=== PATIENT | female | born 1980 | race Caucasian/White ===

== ENCOUNTER 2017-04-25 16:26 | Emergency (ER) | payer SELFPAY ==
[~2017-04-25] VITALS: Ht 162.6 cm; Wt 43.5 kg
[~2017-04-25 16:26] MED LIST: ACET-789 PO
[2017-04-25 19:43] LABS: BASOPHILS # (AUTO) 0.1 10^3/uL (0.0-0.1); BASOPHILS % (AUTO) 1 % (0-10); EOSINOPHILS % (AUTO) 0 % (0-10); LYMPHOCYTES # (AUTO) 2.3 X 10^3 (1.0-4.0); LYMPHOCYTES % (AUTO) 28 % (12-44); MEAN CORPUSCULAR HEMOGLOBIN 30 PG (25-34); MEAN CORPUSCULAR HGB CONC 33 G/DL (32-36); MEAN CORPUSCULAR VOLUME 91 FL (80-99); MEAN PLATELET VOLUME 10.3 FL (7.4-10.4); MONOCYTES # (AUTO) 0.4 X 10^3 (0.0-1.0); MONOCYTES % (AUTO) 4 % (0-12); NEUTROPHILS # (AUTO) 5.6 X 10^3 (1.8-7.8); NEUTROPHILS % (AUTO) 67 % (42-75); PLATELET COUNT 297 10^3/uL (130-400); RED BLOOD COUNT 4.39 10^6/uL (4.35-5.85); RED CELL DISTRIBUTION WIDTH 13.3 % (10.0-14.5); WHITE BLOOD COUNT 8.3 10^3/uL (4.3-11.0)
[2017-04-25 20:12] LABS: ALANINE AMINOTRANSFERASE 30 U/L (0-55); ALBUMIN 4.6 GM/DL (3.2-4.5); ALCOHOL < 10 MG/DL (<10); AMYLASE 35 U/L (25-125); ANION GAP 14 MMOL/L (5-14); ASPARTATE AMINO TRANSFERASE 22 U/L (5-34); BILIRUBIN,TOTAL 0.5 MG/DL (0.1-1.0); BLOOD UREA NITROGEN 12 MG/DL (7-18); BUN/CREATININE RATIO 14; CALCIUM 9.4 MG/DL (8.5-10.1); CARBON DIOXIDE 19 MMOL/L (21-32); CHLORIDE 108 MMOL/L (98-107); CREATININE SERUM 0.84 MG/DL (0.60-1.30); GFR ESTIMATED > 60; GLUCOSE 96 MG/DL (70-105); POTASSIUM 3.8 MMOL/L (3.6-5.0); SODIUM 141 MMOL/L (135-145); TOTAL PROTEIN 7.6 GM/DL (6.4-8.2)
[2017-04-25 20:37] VITALS: BP 152/82
[2017-04-25 20:39] LABS: BILIRUBIN,URINE NEGATIVE (NEGATIVE); KETONES,URINE 1+ (NEGATIVE); LEUKOCYTE ESTERASE ,URINE NEGATIVE (NEGATIVE); NITRITE,URINE NEGATIVE (NEGATIVE); PH,URINE 5 (5-9); PROTEIN,URINE 1+ (NEGATIVE); UROBILINOGEN,URINE NORMAL (NORMAL)
[2017-04-25 20:51] LABS: ACETAMINOPHEN < 10 UG/ML (10-30); SALICYLATE < 5.0 MG/DL (5.0-20.0)
== END 2017-04-25 20:37 | disposition left against medical advice (07) ==
LOC: EDUNIT# 16:26 → ER 16:28
DX: F99 Mental disorder, not otherwise specified (principal)
CPT/HCPCS: 36415; 80053; 80306; 80320; 80329; 81000; 82150; 84443; 84703; 85025; 99283

== ENCOUNTER 2018-03-31 10:46 | Emergency (ER) | payer OTHER ==
[~2018-03-31] VITALS: Ht 162.6 cm; Wt 43.5 kg
--- NOTE | 2018-03-31 12:10 | ED Upper Extremity ---
General Chief Complaint: Upper Extremity Stated Complaint: RIGHT PINKY PAIN Nursing Triage Note: PT STATES SHE CUT HER 5TH DIGIT ON THE RT HAND A FEW WEEKS AGO, STATES IT STILL HURTS AND IS UNABLE TO WRITE WITH THIS HAND AND WAS WONDERING WHAT WE COULD DO FOR HER. Nursing Sepsis Screen: No Definite Risk Source: patient Exam Limitations: no limitations History of Present Illness Date Seen by Provider: Mar 31, 2018 Time Seen by Provider: 12:11 Initial Comments Patient is a 37-year-old female who presents to the emergency room with complaints of right fifth finger stiffness. She reports that 2 weeks ago she cut the finger at the proximal interphalangeal joint with a knife and use superglue to repair it. She reports that she thinks she might of cut a tendon. The patient has full range of motion and normal sensation in the finger. She reports that she is trying to get a new job but this finger is not allowing her to. Onset: other (2 weeks ago) Severity: mild Pain/Injury Location: right 5th finger Method of Injury: incised Modifying Factors: Improves With Movement Allergies and Home Medications Allergies Coded Allergies: iodine (Verified Allergy, Unknown, 01/21/08) Home Medications Acetaminophen with Codeine 1 Each Tablet, 1 EACH PO Q4H Prescribed by: MAHIN LEUNG on 09/05/16 0058 Patient Home Medication List Home Medication List Reviewed: Yes Constitutional: see HPI; No chills, No diaphoresis EENTM: see HPI; No ear discharge, No hearing loss, No ear pain Respiratory: see HPI; No cough, No dyspnea on exertion Cardiovascular: no symptoms reported Genitourinary: no symptoms reported Musculoskeletal: see HPI; No back pain; joint pain; No joint swelling; muscle stiffness Skin: see HPI; No change in color, No change in hair/nails; other (scar on the right fifth finger) Psychiatric/Neurological: No Symptoms Reported All Other Systems Reviewed Negative Unless Noted: Yes Past Blzgakp-Terfcr-Afmtjh Hx Past Med/Social Hx: Reviewed Nursing Past Med/Soc Hx Patient Social History Alcohol Use: Rarely Uses Number of Drinks Today: AA Alcohol Beverage of Choice: Beer Recreational Drug Use: No Smoking Status: Former Smoker Type Used: Cigarettes Former Smoker, Quit: Mar 04, 2016 2nd Hand Smoke Exposure: Yes Recent Foreign Travel: No Contact w/Someone Who Travel: No Recent Infectious Disease Expo: No Recent Hopitalizations: No Seasonal Allergies Seasonal Allergies: No Past Medical History Surgeries: Yes (back surgery) Orthopedic, Tonsillectomy Respiratory: No Cardiac: No Neurological: No : No Last Menstrual Period: Mar 04, 2013 Reproductive Disorders: No 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 Sexually Transmitted Disease: No HIV/AIDS: No Genitourinary: No Gastrointestinal: No Musculoskeletal: No Endocrine: No HEENT: No Cancer: No Psychosocial: No Integumentary: No Blood Disorders: No Adverse Reaction/Blood Tranf: No Family Medical History Reviewed Nursing Family Hx No Pertinent Family Hx Physical Exam Vital Signs Vital Signs - First Documented 03/31/18 11:55 Temp 98.0 Pulse 55 Resp 18 B/P (MAP) 107/88 (94) Pulse Ox 99 O2 Delivery Room Air Capillary Refill : Less Than 3 Seconds General Appearance: WD/WN, no apparent distress HEENT: normal ENT inspection, TMs normal, pharynx normal Neck: full range of motion, supple, normal inspection Cardiovascular: normal peripheral pulses, regular rate, rhythm, no edema, no gallop, no JVD, no murmur Respiratory: chest non-tender, lungs clear, normal breath sounds, no respiratory distress, no accessory muscle use Gastrointestinal: normal bowel sounds, non tender, soft, no organomegaly, no pulsatile mass Back: normal inspection, no CVA tenderness, no vertebral tenderness Shoulder: normal inspection, non-tender, no evidence of injury, normal ROM Elbow/Forearm: normal inspection, non-tender, no evidence of injury, normal ROM Wrist: Yes normal inspection, Yes non-tender, Yes no evidence of injury, Yes normal ROM Hand: normal inspection, non-tender, no evidence of injury, normal ROM, stiffness (there is stiffness to the right fifth finger but does have full range of motion, can make a fist has normal sensation and adequate capillary refill., ) Neurologic/Tendon: normal sensation, normal motor functions, normal tendon functions, responds to pain Neurologic/Psychiatric: no motor/sensory deficits, alert, normal mood/affect, oriented x 3 Skin: normal color, warm/dry Lymphatic: no adenopathy Progress/Results/Core Measures Results/Orders My Orders Vital Signs/I&O 03/31/18 03/31/18 11:55 12:24 Temp 98.0 98.0 Pulse 55 55 Resp 18 18 B/P (MAP) 107/88 (94) 107/88 (94) Pulse Ox 99 99 O2 Delivery Room Air Room Air Blood Pressure Mean: 94 Departure Impression Primary Impression: Healing laceration Disposition: 01 HOME, SELF-CARE Condition: Stable/Unchanged Departure-Patient Inst. Decision time for Depature: 12:16 Referrals: NO,LOCAL PHYSICIAN (PCP) Primary Care Physician Patient Instructions: Wound Care Add. Discharge Instructions: You may use ibuprofen and Tylenol as needed for discomfort as directed by the bottle. Follow-up with your doctor within 1 week for recheck. Return back to the emergency room for any concerns as needed. All discharge instructions reviewed with patient and/or family. Voiced understanding. TYRONE SHEEHAN Mar 31, 2018 12:10
[2018-03-31 12:24] VITALS: BP 107/88
== END 2018-03-31 12:24 | disposition home or self-care (01) ==
LOC: EDUNIT# 10:46 → ER 10:49
DX: S61.216A Laceration without foreign body of right little finger without damage to nail, initial encounter (principal); Z90.89 Acquired absence of other organs; Z87.891 Personal history of nicotine dependence; Z91.041 Radiographic dye allergy status; W26.0XXD Contact with knife, subsequent encounter
CPT/HCPCS: 29130

== ENCOUNTER 2018-04-09 04:30 | Emergency (ER) | payer OTHER ==
[~2018-04-09] VITALS: Ht 162.6 cm; Wt 43.5 kg
[2018-04-09] MEDS ORDERED: TETANUS,DIPTH,PERTUSS P/F (BOOSTRIX) 0.5 ML VIAL IM STA (04:44)
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
[2018-04-09] MEDS ORDERED: SULF1TAB35 PO (05:19)
[2018-04-09] MEDS ORDERED: NAPR-915 PO (05:19)
[2018-04-09] MEDS ORDERED: MUPI15CR TP (05:19)
[2018-04-09 05:31] VITALS: BP 121/79
--- NOTE | 2018-04-09 07:18 | Diagnostic Imaging Report ---
INDICATION: Right hand swelling. FINDINGS: AP, oblique and lateral views of the right hand are obtained and reveal comminuted nondisplaced fracture involving the fourth middle phalanx. Fracture does extend toward the proximal articular surface however there is no evidence of articular surface offset. No other acute fracture or malalignment is identified and there is no evidence of radiopaque foreign body. IMPRESSION: Nondisplaced comminuted fourth middle phalangeal fracture. Dictated by: Dictated on workstation # [id number]
--- NOTE | 2018-04-09 07:20 | Diagnostic Imaging Report ---
INDICATION: Right foot swelling. FINDINGS: AP, oblique and lateral views of the right foot are obtained. There is rather extensive swelling along the lateral aspect of the foot near the fifth metatarsophalangeal joint. No fracture or malalignment is identified and there is no radiopaque foreign body. IMPRESSION: Lateral foot swelling without radiographic evidence of acute osseous abnormality. Dictated by: Dictated on workstation # [id number]
== END 2018-04-09 05:29 | disposition home or self-care (01) ==
LOC: EDUNIT# 04:30 → ER 04:31
DX: S62.624A Displaced fracture of middle phalanx of right ring finger, initial encounter for closed fracture (principal); L03.115 Cellulitis of right lower limb; Z90.89 Acquired absence of other organs; Z77.22 Contact with and (suspected) exposure to environmental tobacco smoke (acute) (chronic); Z91.041 Radiographic dye allergy status; Z87.891 Personal history of nicotine dependence; W22.09XA Striking against other stationary object, initial encounter
CPT/HCPCS: 73130; 73630; 90471; 90715

== ENCOUNTER 2018-04-13 11:52 | Emergency (ER) | payer OTHER ==
[~2018-04-13] VITALS: Ht 160 cm; Wt 40.8 kg
[~2018-04-13 11:52] MED LIST changes: +MUPI15CR TP; +NAPR-915 PO; +SULF1TAB35 PO
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
[2018-04-13 13:05] VITALS: BP 91/56
== END 2018-04-13 13:05 | disposition home or self-care (01) ==
LOC: EDUNIT# 11:52 → ER 11:55
DX: S62.654A Nondisplaced fracture of middle phalanx of right ring finger, initial encounter for closed fracture (principal); S93.601A Unspecified sprain of right foot, initial encounter; Z98.51 Tubal ligation status; Z91.041 Radiographic dye allergy status; Z90.89 Acquired absence of other organs; Z77.22 Contact with and (suspected) exposure to environmental tobacco smoke (acute) (chronic)
CPT/HCPCS: 29130

== ENCOUNTER 2018-04-26 10:48 | Emergency (ER) | payer OTHER ==
[~2018-04-26] VITALS: Ht 160 cm; Wt 40.8 kg
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
--- NOTE | 2018-04-26 11:06 | ED Upper Extremity ---
General Chief Complaint: General Problems/Pain Stated Complaint: RT RING FINGER PAIN Nursing Triage Note: PT STATES PAIN ON THE RT HAND 4TH FINGER. FINGER SWOLLEN AND DISCOLORED. STATES SHE INJURED IT ON 04/06/18. Nursing Sepsis Screen: No Definite Risk Source: patient Exam Limitations: no limitations History of Present Illness Date Seen by Provider: Apr 26, 2018 Time Seen by Provider: 11:01 Initial Comments Patient is a 38-year-old female who presents to emergency room with complaints swelling and pain to her right fourth finger. She reports that she injured the finger on 04/06/18 and was seen in this emergency room on 04/09/18 and was told that she had a fracture of the finger. She denies reinjury but reports pain and swelling. Onset: other (April 06) Pain/Injury Location: right 4th finger Modifying Factors: Improves With Movement Allergies and Home Medications Allergies Coded Allergies: iodine (Verified Allergy, Unknown, 01/21/08) Home Medications Mupirocin Calcium 15 Gm Cream..g., 15 GM TP BID Prescribed by: PAT BANDA on 04/09/18518 Naproxen 500 Mg Tablet, 500 MG PO BID Prescribed by: PAT BANDA on 04/09/18518 Sulfamethoxazole/Trimethoprim 1 Each Tablet, 1 EACH PO BID Prescribed by: PAT BANDA on 04/09/18518 Patient Home Medication List Home Medication List Reviewed: Yes Constitutional: see HPI; No chills, No diaphoresis, No dizziness, No fever Gastrointestinal: abdominal pain Musculoskeletal: see HPI, other (Right ring finger pain.) All Other Systems Reviewed Negative Unless Noted: Yes Past Napnkgi-Bvduuw-Thtmhq Hx Past Med/Social Hx: Reviewed Nursing Past Med/Soc Hx Patient Social History Alcohol Use: Denies Use Number of Drinks Today: AA Alcohol Beverage of Choice: Beer Recreational Drug Use: No Type Used: Cigarettes Former Smoker, Quit: Mar 04, 2016 2nd Hand Smoke Exposure: Yes Recent Foreign Travel: No Contact w/Someone Who Travel: No Recent Infectious Disease Expo: No Recent Hopitalizations: No Seasonal Allergies Seasonal Allergies: No Past Medical History Surgeries: Yes (BACK SURGERY; NOSE SURGERY FOR INFECTION IN HER NOSE) Orthopedic, Tonsillectomy, Tubal Ligation Respiratory: No Cardiac: No Neurological: Yes Reproductive Disorders: 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 oz. 40.969908fd; BMI Method:Estimated General Appearance: WD/WN, no apparent distress Cardiovascular: regular rate, rhythm, no edema, no gallop, no JVD, no murmur Respiratory: chest non-tender, lungs clear, normal breath sounds, no respiratory distress, no accessory muscle use Wrist: Yes swelling (bilaterally) Hand: Right, ecchymosis, swelling (swelling and ecchymosis to the right fourth finger) Neurologic/Tendon: normal sensation, normal motor functions, normal tendon functions, responds to pain Neurologic/Psychiatric: alert, normal mood/affect, oriented x 3 Skin: normal color, warm/dry Progress/Results/Core Measures Results/Orders My Orders Orders - TYRONE SHEEHAN Finger(S) (04/26/18 11:00) Acetaminophen Tablet (Tylenol Tablet) (04/26/18 11:15) Vital Signs/I&O Blood Pressure Mean: 108 Progress Progress Note : Time: 11:12 Progress Note Patient denies taking anything for pain. Tylenol 1000 mg ordered. 1130: The patient's nurse informed me that the patient refused the Tylenol. Patient was referred to Dr. Kohler for follow-up. She agrees with complains of discharge, close follow-up, and return precautions. Initial ECG Impression Date: Apr 26, 2018 Departure Impression Primary Impression: Finger fracture Qualified Codes: S62.604A - Fracture of unspecified phalanx of right ring finger, initial encounter for closed fracture Disposition: HOME, SELF-CARE Condition: Stable/Unchanged Departure-Patient Inst. Decision time for Depature: 11:17 Referrals: NO,LOCAL PHYSICIAN (PCP) Primary Care Physician GISSEL KOHLER MD Patient Instructions: Finger Fracture (DC) Add. Discharge Instructions: Continue to use the splint that was provided to you on your first visit. You may use Tylenol and ibuprofen as needed for pain. Use ice pack to sore areas. Follow-up with Dr. Kohler within 1 week for a recheck. Return back to the emergency room for any worsening symptoms or any concerns as needed. All discharge instructions reviewed with patient and/or family. Voiced understanding. TYRONE SHEEHAN Apr 26, 2018 11:06
[2018-04-26] MEDS ORDERED: ACETAMINOPHEN 500 MG TAB (TYLENOL) PO ONE (11:15)
--- NOTE | 2018-04-26 11:28 | Diagnostic Imaging Report ---
INDICATION: Pain in right hand and fingers. AP, oblique, and lateral views of the right fingers are obtained and compared with 04/09/2018. Comminuted fracture of the fourth middle phalanx is unchanged in position in alignment compared to the previous study. There appears to be a fracture of the fifth middle phalanx as well with horizontal component. This is much better visualized than on the previous study. There is no dislocation. The remaining bony structures are intact. Impression: Stable alignment of comminuted fracture of fourth middle phalanx compared to the prior study. There is a horizontal fracture of the fifth middle phalanx which is much better visualized than on the previous study. This appears in anatomic alignment. Dictated by: Dictated on workstation # [id number]
[2018-04-26 11:40] VITALS: BP 127/98
== END 2018-04-26 11:40 | disposition home or self-care (01) ==
LOC: EDUNIT# 10:48 → ER 10:51
DX: S62.624A Displaced fracture of middle phalanx of right ring finger, initial encounter for closed fracture (principal); Z91.041 Radiographic dye allergy status; Z87.891 Personal history of nicotine dependence; Z98.51 Tubal ligation status; Z90.89 Acquired absence of other organs; X58.XXXA Exposure to other specified factors, initial encounter
CPT/HCPCS: 73140

== ENCOUNTER 2018-07-24 13:42 | Emergency (ER) | payer SELFPAY ==
[~2018-07-24] VITALS: Ht 162.6 cm; Wt 47.2 kg
--- OUTSIDE RECORDS SUMMARY | 2018-07-24 13:47 | XMS REPORT | Clinical Summary ---
Author Author [facility] Address Unknown Phone Unavailable Care Team Providers Care Senior Escrow Officer Name Role Phone PCP Unavailable Allergies Active Allergy Reactions Severity Noted Date Comments Iodine And Iodide 05/10/2015 Containing Products Ketorolac Hallucinations 05/10/2015 Current Medications Prescription Sig. Disp. Refills Start End Date Status Date ACETAMINOPHEN/DIPHENHYDRA Take by mouth. Active MINE (TYLENOL PM EXTRA STRENGTH ORAL)Indications: Acute chest pain, Costochondritis HYDROcodone-acetaminophen Take one tablet by mouth 15 tablet 0 Active (NORCO) 5-325 mg per every 6 (six) hours as 15 tablet needed for pain. Active Problems Not on file Social History Tobacco Use Types Packs/Day Years Used Date Current Every Day Smoker 1 Alcohol Use Drinks/Week oz/Week Comments Yes occasionally Sex Assigned at Date Recorded Not on file Last Filed Vital Signs Vital Sign Reading Time Taken Blood Pressure 121/65 05/10/2015 5:00 PM CDT Pulse 46 05/10/2015 7:00 PM CDT Temperature 37.2 C (98.9 F) 05/10/2015 3:55 PM CDT Respiratory Rate 11 05/10/2015 7:00 PM CDT Oxygen Saturation 92% 05/10/2015 5:00 PM CDT Inhaled Oxygen - - Concentration Weight 50.8 kg (112 lb) 05/10/2015 3:55 PM CDT Height 157.5 cm (5' 2.01") 05/10/2015 3:55 PM CDT Body Mass Index 20.48 05/10/2015 3:55 PM CDT Plan of Treatment Not on file Results Not on filefrom Last 3 Months
[2018-07-24 14:00] VITALS: BP 106/75
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
== END 2018-07-24 15:12 | disposition left against medical advice (07) ==
LOC: EDUNIT# 13:42 → ER 13:43
DX: R07.0 Pain in throat (principal); Z91.041 Radiographic dye allergy status; Z87.891 Personal history of nicotine dependence; Z90.89 Acquired absence of other organs; Z98.51 Tubal ligation status
CPT/HCPCS: 99282

== ENCOUNTER 2018-07-25 13:52 | Emergency (ER) | payer SELFPAY ==
[~2018-07-25] VITALS: Ht 162.6 cm; Wt 47.2 kg
--- OUTSIDE RECORDS SUMMARY | 2018-07-25 13:58 | XMS REPORT | Clinical Summary ---
Author Author [facility] Address Unknown Phone Unavailable Care Team Providers Care Yard Person Name Role Phone PCP Unavailable Allergies Active [...]
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
[2018-07-25 14:47] LABS: BASOPHILS # (AUTO) 0.1 10^3/uL (0.0-0.1); BASOPHILS % (AUTO) 1 % (0-10); EOSINOPHILS # (AUTO) 0.1 10^3/uL (0.0-0.3); EOSINOPHILS % (AUTO) 1 % (0-10); HEMATOCRIT 39 % (35-52); LYMPHOCYTES # (AUTO) 2.4 X 10^3 (1.0-4.0); LYMPHOCYTES % (AUTO) 31 % (12-44); MEAN CORPUSCULAR HEMOGLOBIN 30 PG (25-34); MEAN CORPUSCULAR HGB CONC 33 G/DL (32-36); MEAN CORPUSCULAR VOLUME 91 FL (80-99); MEAN PLATELET VOLUME 9.7 FL (7.4-10.4); MONOCYTES # (AUTO) 0.5 X 10^3 (0.0-1.0); MONOCYTES % (AUTO) 7 % (0-12); NEUTROPHILS # (AUTO) 4.6 X 10^3 (1.8-7.8); NEUTROPHILS % (AUTO) 60 % (42-75); PLATELET COUNT 279 10^3/uL (130-400); RED BLOOD COUNT 4.32 10^6/uL (4.35-5.85); RED CELL DISTRIBUTION WIDTH 13.4 % (10.0-14.5); WHITE BLOOD COUNT 7.6 10^3/uL (4.3-11.0)
[2018-07-25 14:48] LABS: BILIRUBIN,URINE NEGATIVE (NEGATIVE); CLARITY,URINE CLEAR; COLOR,URINE YELLOW; GLUCOSE, URINE (UA) NEGATIVE (NEGATIVE); KETONES,URINE NEGATIVE (NEGATIVE); LEUKOCYTE ESTERASE ,URINE 2+ (NEGATIVE); NITRITE,URINE NEGATIVE (NEGATIVE); PH,URINE 6 (5-9); PROTEIN,URINE NEGATIVE (NEGATIVE); UROBILINOGEN,URINE NORMAL (NORMAL)
[2018-07-25 14:55] LABS: BACTERIA,URINE FEW /HPF; RBC,URINE RARE /HPF; SQUAMOUS EPITHELIAL CELL,UR 0-2 /HPF
[2018-07-25 14:59] LABS: AMPHETAMINE SCREEN, URINE NEGATIVE (NEGATIVE); BARBITURATE SCREEN URINE NEGATIVE (NEGATIVE); BENZODIAZEPINES SCREEN URINE NEGATIVE (NEGATIVE); CANNABINOID SCREEN, URINE NEGATIVE (NEGATIVE); COCAINE SCREEN URINE NEGATIVE (NEGATIVE); METHADONE STAT NEGATIVE (NEGATIVE); METHAMPHETAMINE SCREEN URINE S NEGATIVE (NEGATIVE); OPIATE SCREEN URINE NEGATIVE (NEGATIVE); OXYCODONE STAT NEGATIVE (NEGATIVE); PROPOXYPHENE STAT NEGATIVE (NEGATIVE); TRICYCLIC ANTIDEPRESSANTS SCRE NEGATIVE (NEGATIVE)
[2018-07-25 15:06] LABS: ALANINE AMINOTRANSFERASE 13 U/L (0-55); ALBUMIN 4.8 GM/DL (3.2-4.5); ALKALINE PHOSPHATASE 54 U/L (40-136); BILIRUBIN,TOTAL 0.5 MG/DL (0.1-1.0); BUN/CREATININE RATIO 17; CALCIUM 10.4 MG/DL (8.5-10.1); CARBON DIOXIDE 24 MMOL/L (21-32); CHLORIDE 103 MMOL/L (98-107); CREATININE SERUM 0.84 MG/DL (0.60-1.30); GFR ESTIMATED > 60; GLUCOSE 101 MG/DL (70-105); POTASSIUM 4.2 MMOL/L (3.6-5.0); SALICYLATE < 5.0 MG/DL (5.0-20.0); SODIUM 141 MMOL/L (135-145); TOTAL PROTEIN 7.9 GM/DL (6.4-8.2)
[2018-07-25 15:08] LABS: ACETAMINOPHEN < 10 UG/ML (10-30)
[2018-07-25 15:15] VITALS: BP 120/88
== END 2018-07-25 15:15 | disposition home or self-care (01) ==
LOC: EDUNIT# 13:52 → ER 13:54
DX: T62 Toxic effect of other noxious substances eaten as food (principal); F22 Delusional disorders; Z91.041 Radiographic dye allergy status; Z87.891 Personal history of nicotine dependence; Z98.51 Tubal ligation status; Z90.89 Acquired absence of other organs
CPT/HCPCS: 36415; 80053; 80306; 80320; 80329; 81000; 84703; 85025; 99282

== ENCOUNTER 2018-08-13 03:59 | Emergency (ER) | payer SELFPAY ==
[~2018-08-13] VITALS: Ht 162.6 cm; Wt 47.2 kg
--- OUTSIDE RECORDS SUMMARY | 2018-08-13 04:05 | XMS REPORT | Clinical Summary ---
Author Author [facility] Address Unknown Phone Unavailable Care Team Providers Care Medical Laboratory Technicians Name Role Phone PCP Unavailable Allergies Active [...]
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
[2018-08-13 05:20] VITALS: BP 120/68
--- NOTE | 2018-08-13 06:11 | Diagnostic Imaging Report ---
INDICATION: Foot pain x3 days.. TECHNIQUE: 3 views of the right foot CORRELATION STUDY: None FINDINGS: The osseous structures of the foot are intact. Joint spaces are maintained. Alignment anatomic. Soft tissues appearing unremarkable. IMPRESSION: 1. Negative for acute findings of the foot. Dictated by: Dictated on workstation # [id number]
--- NOTE | 2018-08-13 06:12 | Diagnostic Imaging Report ---
INDICATION: Leg pain x3 days TECHNIQUE: AP and lateral views of the right tibia and fibula CORRELATION STUDY: None FINDINGS: The tibia and fibula are intact. There is no evidence for acute fracture. Limited visualized portions of the knee and ankle are unremarkable. Soft tissues are unremarkable. IMPRESSION: 1.Negative for acute bony abnormality of the leg. Dictated by: Dictated on workstation # [id number]
== END 2018-08-13 05:23 | disposition home or self-care (01) ==
LOC: EDUNIT# 03:59 → ER 04:01
DX: M79.604 Pain in right leg (principal); G40.909 Epilepsy, unspecified, not intractable, without status epilepticus; Z91.041 Radiographic dye allergy status; Z87.891 Personal history of nicotine dependence; Z90.89 Acquired absence of other organs; Z98.51 Tubal ligation status; Z90.6 Acquired absence of other parts of urinary tract
CPT/HCPCS: 36415; 73590; 73630; 85379

== ENCOUNTER 2019-01-19 11:01 | Emergency (ER) | payer SELFPAY ==
[~2019-01-19] VITALS: Ht 160 cm; Wt 49.9 kg
--- OUTSIDE RECORDS SUMMARY | 2019-01-19 11:06 | XMS REPORT | Clinical Summary ---
Author Author [facility] Address Unknown Phone Unavailable Care Team Providers Care Water Resource Project Manager Name Role Phone PCP Unavailable Allergies Active [...]
--- NOTE | 2019-01-19 11:23 | ED Lower Extremity ---
General Chief Complaint: Lower Extremity Stated Complaint: L FOOT SWELLING Source: patient Exam Limitations: no limitations History of Present Illness Date Seen by Provider: Jan 19, 2019 Time Seen by Provider: 11:21 Initial Comments To ER with reports of left foot swelling for about 2-3 days or "probably longer ". She cannot recall any particular injury. Denies fevers or chills. There is no swelling to the leg itself or the ankle, only the distal foot. It is tender to touch. Onset: just prior to arrival Severity: moderate Pain/Injury Location: left foot Method of Injury: unknown Modifying Factors: Worse With Movement Allergies and Home Medications Allergies Coded Allergies: iodine (Verified Allergy, Unknown, 01/21/08) Patient Home Medication List Home Medication List Reviewed: Yes Review of Systems Constitutional: see HPI EENTM: see HPI Respiratory: no symptoms reported Cardiovascular: no symptoms reported Genitourinary: no symptoms reported Musculoskeletal: see HPI Skin: no symptoms reported Psychiatric/Neurological: No Symptoms Reported Past Snrjnye-Shsfpm-Cfmqco Hx Patient Social History Alcohol Use: Denies Use Number of Drinks Today: AA Alcohol Beverage of Choice: Beer Recreational Drug Use: Yes Smoking Status: Former Smoker Type Used: Cigarettes Former Smoker, Quit: Mar 04, 2016 2nd Hand Smoke Exposure: Yes Recent Hopitalizations: No Immunizations Up To Date Tetanus Booster (TDap): Less than 5yrs Seasonal Allergies Seasonal Allergies: No Past Medical History Surgeries: Yes Orthopedic, Tonsillectomy, Tubal Ligation Respiratory: No Cardiac: No Neurological: Yes Seizure Disorder Reproductive Disorders: 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 oz. 47.824809ub; BMI Method:Stated General Appearance: WD/WN, no apparent distress HEENT: PERRL/EOMI, normal ENT inspection Respiratory: no respiratory distress, no accessory muscle use Hips: bilateral hip non-tender, bilateral hip normal inspection Legs: bilateral leg non-tender Knees: bilateral knee non-tender, bilateral knee normal inspection, bilateral knee normal range of motion Ankles: bilateral ankle non-tender, bilateral ankle normal inspection, bilateral ankle normal range of motion Feet: left foot pain, left foot soft tissue tenderness, left foot swelling, left foot other (capillary refill of the toes is brisk, there is mild swelling dorsal aspect of the foot distally, there is no swelling of the ankle or leg. There is no abrasion or ulceration or other wound seen to the plantar or dorsal surface. The dorsal surface is tender to touch.) Neurologic/Psychiatric: alert, normal mood/affect, oriented x 3 Skin: normal color, warm/dry Progress/Results/Core Measures Results/Orders My Orders Orders - CASA LOPEZ APRN Foot, Left, 3 Views (01/19/19 11:20) Vital Signs/I&O 01/19/19 11:10 Temp 97.6 Pulse 64 Resp 18 B/P (MAP) 115/70 (85) Pulse Ox 98 Departure Communication (Admissions) Difficult to assess for any erythema of the foot given her dark skin complexion. Swelling and tenderness we will place her on Keflex. Impression Primary Impression: Swelling of left foot Disposition: HOME, SELF-CARE Condition: Stable Departure-Patient Inst. Decision time for Depature: 11:25 Referrals: NO,LOCAL PHYSICIAN (PCP/Family) Primary Care Physician Patient Instructions: NO INSTRUCTIONS GIVEN Add. Discharge Instructions: 1. Take antibiotics as directed. Elevate the foot as much as possible. Follow- up with your doctor on Wednesday for recheck. All discharge instructions reviewed with patient and/or family. Voiced understanding. Scripts Cephalexin (Keflex) 500 Mg Capsule 500 MG PO TID, #21 CAP Prov: CASA LOPEZ APRN 01/19/19 CASA LOPEZ APRN Jan 19, 2019 11:23
[2019-01-19] MEDS ORDERED: CEPH-507 PO (11:26)
--- NOTE | 2019-01-19 11:51 | Diagnostic Imaging Report ---
Indication: Left foot injury 3 views of the left foot show no fracture, dislocation or other acute abnormalities. Impression: Negative left foot Dictated by: Dictated on workstation # [id number]
[2019-01-19] MEDS ORDERED: LIDOCAINE 1% INJ 20 ML 20 ML VIAL INJ ONE (12:15)
[2019-01-19] MEDS ORDERED: cefTRIAXone 1,000 MG/2.86 ml vial (IM ONLY) IM SCH (12:15)
[2019-01-19 13:01] VITALS: BP 115/70
== END 2019-01-19 13:04 | disposition home or self-care (01) ==
LOC: EDUNIT# 11:01 → ER 11:02
DX: M25.475 Effusion, left foot (principal); G40.909 Epilepsy, unspecified, not intractable, without status epilepticus; Z91.041 Radiographic dye allergy status; Z87.891 Personal history of nicotine dependence; Z90.89 Acquired absence of other organs; Z98.51 Tubal ligation status
CPT/HCPCS: 73630

== ENCOUNTER → 2019-12-27 | Outpatient (REF) ==
[~2019-12-27] MED LIST changes: +CEPH-507 PO
--- NOTE | 2019-12-27 13:31 | Diagnostic Imaging Report ---
INDICATION: Stabbing injury COMPARISON: None. FINDINGS: 3 views of the right knee joint demonstrate no acute fracture or dislocation. No focal osseous lesions are seen. No significant joint effusion is seen. The surrounding soft tissue structures are unremarkable. There are no radiopaque foreign bodies. IMPRESSION: 1. Unremarkable radiographic exam of the right knee. Dictated by: Dictated on workstation # [id number]
== END | disposition home or self-care (01) ==
LOC: OCC 12:49
PROVIDERS: ATTEND Nurse Practitioner Family
CPT/HCPCS: 73562